=== PATIENT | male | born 1990 | race Caucasian/White ===

== ENCOUNTER 2019-01-23 01:58 | Emergency (ER) | payer OTHER ==
[~2019-01-23] VITALS: Ht 175.3 cm; Wt 93.0 kg
[2019-01-23] MEDS ORDERED: KETO10TA2 PO (03:08)
== END 2019-01-23 03:26 | disposition home or self-care (01) ==
LOC: ER 01:58
DX: S50.01XA Contusion of right elbow, initial encounter (principal); V49.9XXA Car occupant (driver) (passenger) injured in unspecified traffic accident, initial encounter; Y93.89 Activity, other specified; Y92.488 Other paved roadways as the place of occurrence of the external cause; Y99.8 Other external cause status